=== PATIENT | male | born 1965 | race Caucasian/White ===

== ENCOUNTER 2021-08-22 14:48 | Emergency (ER) | payer OTHER ==
--- NOTE | 2021-08-22 15:05 | NUR ---
called in lobby and outside chairs, no answer
--- NOTE | 2021-08-22 15:10 | NUR ---
called in lobby and outside chairs, no answer
--- NOTE | 2021-08-22 15:45 | NUR ---
pt lwbs at this time
== END 2021-08-22 15:05 | disposition left against medical advice (07) ==
LOC: MED 14:48
DX: L02.91 Cutaneous abscess, unspecified (principal); Z53.21 Procedure and treatment not carried out due to patient leaving prior to being seen by health care provider